=== PATIENT | male | born 1980 | race Caucasian/White ===

== ENCOUNTER 2018-07-16 01:12 | Inpatient (IN) | payer MEDICAID ==
[2018-07-16 01:39] LABS: ADD MAN DIFF? NO
[2018-07-16 01:40] LABS: WHITE BLOOD COUNT 7.5 10^3/ul (4.8-10.8)
[2018-07-16 01:40] LABS: BASOPHILS % 0.4 % (0.0-2.0); EOSINOPHILS # 0.2 10^3/ul (0.0-0.5); HEMATOCRIT 42.8 % (42.0-52.0); HEMOGLOBIN 14.9 g/dl (14.0-18.0); LYMPHOCYTES # 3.6 10^3/ul (0.8-2.9); LYMPHOCYTES % 48.8 % (15.0-51.0); MEAN CORPUSCULAR HGB CONC 34.8 g/dl (32.0-37.0); MEAN CORPUSCULAR VOLUME 89.2 fl (82.0-101.0); MEAN PLATELET VOLUME 9.7 fl (7.4-10.4); MONOCYTE # 0.7 10^3/ul (0.3-0.9); MONOCYTES % 8.7 % (0.0-11.0); NEUTROPHILS % 39.8 % (39.0-77.0); PLATELET COUNT 270 10^3/UL (140-415); RED CELL DISTRIBUTION WIDTH 12.3 % (11.5-14.5)
[2018-07-16 01:58] LABS: INR 0.88; PT RATIO 0.9
[2018-07-16 01:59] LABS: HEMOGLOBIN A1C 5.6 % (0-5.9)
[2018-07-16 01:59] LABS: ANION GAP 15 (8-16); BLOOD UREA NITROGEN 17 mg/dl (7-20); CALCIUM 9.1 mg/dl (8.4-10.2); CARBON DIOXIDE 25 mmol/L (21-31); CHLORIDE 109 mmol/L (97-110); CHOLESTEROL 144 mg/dl (100-200); CREATINE KINASE 199 IU/L (23-200); CREATININE 0.81 mg/dl (0.61-1.24); GLUCOSE 147 mg/dl (70-220); HDL CHOLESTEROL 47 mg/dl (27-67); LDL CHOLESTEROL,CALCULATED 45 mg/dl; PARTIAL THROMBOPLASTIN TIME 31.2 Sec (25.0-35.0); POTASSIUM 3.6 mmol/L (3.5-5.1); SODIUM 145 mmol/L (135-144); TRIGLYCERIDES 262 mg/dl (0-149)
[2018-07-16] MEDS: ASPIRIN 325 MG TAB PO (02:07)
[2018-07-16 02:12] LABS: CK INDEX 1.9; CK-MB 3.78 ng/ml (0.0-2.4); TROPONIN-I < 0.012 ng/ml (0.000-0.120)
[2018-07-16] MEDS ORDERED: ONDANSETRON 4 MG INJ IV (02:30)
[2018-07-16] MEDS ORDERED: NITROGLYCERIN (SL) 0.4 MG TAB SL (02:30)
[2018-07-16] MEDS ORDERED: NACL 0.9% 3 ML SYG IV (02:30)
[2018-07-16] MEDS ORDERED: ACETAMINOPHEN 325 MG TAB PO (02:30)
[2018-07-16] MEDS ORDERED: morphine 2 MG INJ IV (02:30)
[2018-07-16] MEDS ORDERED: HYDROCODONE/APAP (5/325) TAB PO (02:30)
[2018-07-16] MEDS: PANTOPRAZOLE 40 MG INJ IV (05:48)
[2018-07-16 07:32] LABS: TROPONIN-I < 0.012 ng/ml (0.000-0.120)
[2018-07-16 13:27] LABS: TROPONIN-I < 0.012 ng/ml (0.000-0.120)
[2018-07-16 17:01] LABS: ADD UMIC NO; UR ASCORBIC ACID NEGATIVE (NEGATIVE); UR BILIRUBIN (Dip) NEGATIVE (NEGATIVE); UR BLOOD (Dip) NEGATIVE (NEGATIVE); UR CLARITY CLEAR (CLEAR); UR COLOR YELLOW (YELLOW); UR GLUCOSE (Dip) NEGATIVE (NEGATIVE); UR KETONES (Dip) NEGATIVE (NEGATIVE); UR LEUKOCYTE ESTERASE (Dip) NEGATIVE Leu/ul (NEGATIVE); UR NITRITE (Dip) NEGATIVE (NEGATIVE); UR SPECIFIC GRAVITY (Dip) 1.023 (1.003-1.030); UR TOTAL PROTEIN (Dip) NEGATIVE (NEGATIVE); UR UROBILINOGEN (Dip) 2+ mg/dL (NEGATIVE)
[2018-07-16 17:37] LABS: AMPHETAMINE/METHAMPHETAMINE Negative (NEGATIVE); BARBITURATES Negative (NEGATIVE); BENZODIAZEPINES Negative (NEGATIVE); CANNABINOIDS Negative (NEGATIVE); COCAINE Positive (NEGATIVE)
[2018-07-16 17:39] LABS: OPIATES Positive (NEGATIVE)
[2018-07-16] MEDS: ASPIRIN 81 MG TAB PO (21:07)
[2018-07-17] MEDS: ASPIRIN 81 MG TAB PO (08:03)
== END 2018-07-17 11:15 | disposition home or self-care (01) | DRG 69 ==
LOC: TEL 03:13 → E/R 01:12 → TEL 02:14
PROVIDERS: Internal Medicine
DX: G45.9 Transient cerebral ischemic attack, unspecified (principal); R07.9 Chest pain, unspecified; E78.5 Hyperlipidemia, unspecified; Z86.73 Personal history of transient ischemic attack (TIA), and cerebral infarction without residual deficits
CPT/HCPCS: 36415; 70450; 70544; 70549; 70551; 71045; 80048; 80061; 80307; 81003; 82550; 82553; 82962; 83036; 84484; 85025; 85610; 85730; 93005; 93306; 99291-25

== ENCOUNTER 2018-11-05 13:09 | Emergency (ER) | payer MEDICAID ==
[2018-11-05] MEDS: IBUPROFEN 600 MG TAB PO (13:48)
== END 2018-11-05 14:27 | disposition home or self-care (01) ==
LOC: FTE 13:09
DX: S29.001A Unspecified injury of muscle and tendon of front wall of thorax, initial encounter (principal); R40.2412 Glasgow coma scale score 13-15, at arrival to emergency department; W18.39XA Other fall on same level, initial encounter; Y92.9 Unspecified place or not applicable; Z79.82 Long term (current) use of aspirin
CPT/HCPCS: 71100; 99283-25